=== PATIENT | female | born 1935 | race African-American/Black ===

== ENCOUNTER 2016-11-15 11:17 | Emergency (ER) | payer OTHER ==
[2016-11-15 11:26] VITALS: BP 148/78
[2016-11-15 13:19] LABS: MANUAL DIFF NEEDED? NO
[2016-11-15 13:20] LABS: BASO% 0.4 % (0.0-0.8); EOS# 0.08 X1000 (0.0-0.7); EOS% 1.1 % (0.0-10.0); HEMATOCRIT 34.7 % (37.0-47.0); HEMOGLOBIN 11.6 g/dL (12.0-16.0); IMM GRAN# 0.01 X1000 (0.0-0.04); IMM GRAN% 0.1 % (0.0-0.5); LYMPH# 1.53 X1000 (1.2-3.4); LYMPH% 21.3 % (20.5-51.1); MCH 27.4 PG (27-31); MCHC 33.4 g/dL (33-37); MCV 81.8 FL (81-99); MONO# 0.35 X1000 (0.11-0.59); MONO% 4.9 % (1.7-9.3); MPV 9.5 FL (7.4-10.4); NEUT% 72.2 % (42.2-75.2); PLT 235 X1000 (130-400); RBC 4.24 XMIL (4.2-5.4)
[2016-11-15 13:39] LABS: AGAP 9; ALBUMIN 4.3 g/dL (3.5-5.0); ALKALINE PHOSPHATASE 81 U/L (32-104); BUN 7 mg/dL (8-22); CALCIUM 9.7 mg/dL (8.8-10.2); CHLORIDE 101 mmol/L (98-107); COSMO 272; GOT 26 U/L (10-30); GPT 16 U/L (10-36); POTASSIUM 4.6 mmol/L (3.5-5.1); SODIUM 136 mmol/L (136-145); TCO2 27 mmol/L (25-35); TOTAL PROTEIN 7.8 g/dL (6.3-8.3)
--- NOTE | 2016-11-15 14:43 | PROVIDER DOCUMENTATION ---
HPI-Musculoskeletal Pain/Inj - GENERAL Source: patient <Ashley Albarran - Last Filed: 11/15/16 14:45> - GENERAL Source: patient - HX OF PRESENT ILLNESS-MUSKULOSKELTAL Quality of Pain: reports: aching Severity in ED: mild Onset/Duration: gradual, other (few weeks) Timing: still present, constant Modifying Factors: worse with: movement Any recent injury?: No Locality of Occurance: Home Similar Symptoms Previously?: Yes Recently seen or treated by another doctor?: Yes - LOWER EXTREMITY PAIN/INJURY Lower Extremities Pain: knee: right Context / Method of Injury: reports: unknown Associated Symptoms: reports: denies symptoms <Steven Lemons - Last Filed: 11/15/16 14:51> - GENERAL Chief Complaint: Extremity Pain Stated Complaint: EXTREMITY PAIN Time Seen by Provider: 11/15/16 11:35 - HX OF PRESENT ILLNESS-MUSKULOSKELTAL Nature of Presenting Problem: pt is a 81 y/o F that presents with right knee pain/swelling for a few weeks.Has been seen for it, was told it was arthritis but knee hasn't got any better. Denies injury, denies chest pain,leg edema, or shortness of breath. ( Steven Lemons) Review of Systems - Adult - REVIEW OF SYSTEMS - ADULT Constitutional: denies: chills, fever Eyes: reports: no symptoms reported Ears, Nose, Mouth & Throat: denies: ear pain, sinus problem, throat pain, throat swelling Cardiovascular: denies: chest pain, edema, palpitations Respiratory: denies: dyspnea on exertion, shortness of breath Gastrointestinal: reports: no symptoms reported Genitourinary: reports: no symptoms reported Musculoskeletal: reports: joint pain, joint swelling Integumentary: reports: no symptoms reported Neurological: reports: no symptoms reported Psychiatric: reports: no symptoms reported Endocrine: reports: no symptoms reported Hematologic/Lymphatic: reports: no symptoms reported Allergic/Immunologic: reports: no symptoms reported All Other Systems: Reviewed and Negative <Steven Lemons - Last Filed: 11/15/16 14:51> Past History - Adult - PAST MEDICAL HISTORY-ADULT Review of Records: reports: Old Records Reviewed, Nursing Assessment Review, Medications Reviewed Cardiovascular: reports: HTN, hyperlipidemia Musculoskeletal: reports: arthritis - PRIOR SURGERIES/PROCEDURES Surgical/Procedure History: reports: hysterectomy - IMMUNIZATION STATUS Childhood Immunizations: See Nurse Assessment Flu Vaccine: See Nurse Assessment - FAMILY HISTORY Family History: reviewed, not pertinent - SOCIAL HISTORY Smoking: non-smoker Living Situation: family <Steven Lemons - Last Filed: 11/15/16 14:51> Physical Exam-Injury Related - Physical Exam-Injury Related Initial Vital Signs Reviewed: Yes General Appearance: alert, no apparent distress Eyes: PERRL/EOMI, pink conjunctivae Head, Ears, Nose, Mouth & Throat: normocephalic/atraumatic, moist mucous membranes, normal ENT inspection Neck: non-tender, full range of motion, normal inspection Respiratory: lungs clear, normal breath sounds, no respiratory distress, no accessory muscle use Cardiovascular: regular rate, rhythm, no gallop, no murmur Abdominal Exam: normal bowel sounds, non tender, soft, no organomegaly, no pulsatile mass Back Exam: normal inspection, no vertebral tenderness Extremity: no pedal edema, no calf tenderness, normal capillary refill, pelvis stable, joint effusion (small to right knee) Integumentary: normal color, warm/dry Neurologic: grossly normal, no motor/sensory deficits Psych/Mental Status: normal mood/affect, normal thought content, normal thought process, oriented x 3 <Steven Lemons - Last Filed: 11/15/16 14:51> Progress - ULTRASOUND (By Radiology) 1 US Study: Lower Ext (right) Impression: Normal (no dvt prelim vascular) <Ashley Albarran - Last Filed: 11/15/16 14:45> <Steven Lemons - Last Filed: 11/15/16 14:51> - PLAN OF CARE/RESULTS Progress/Plan/Lab Results: Vital Signs Temp Pulse Resp BP Pulse Ox 11/15/16 11:20 98.4 F 84 18 148/78 97 Laboratory 11/15/16 11/15/16 11/15/16 13:14 13:14 13:14 WBC 7.20 RBC 4.24 Hgb 11.6 L Hct 34.7 L MCV 81.8 MCH 27.4 MCHC 33.4 RDW Std Deviation 12.4 Plt Count 235 MPV 9.5 Immature Gran % (Auto) 0.1 Neut % (Auto) 72.2 Lymph % (Auto) 21.3 Gaines % (Auto) 4.9 Eos % (Auto) 1.1 Baso % (Auto) 0.4 Immature Gran # (Auto) 0.01 Neut # (Auto) 5.20 Lymph # (Auto) 1.53 Gaines # (Auto) 0.35 Eos # (Auto) 0.08 Baso # (Auto) 0.03 D-Dimer 0.77 H Sodium 136 Potassium 4.6 Chloride 101 Carbon Dioxide 27 Anion Gap 9 BUN 7 L Creatinine 0.8 Estimated GFR/1.73 m2 > 60 BUN/Creatinine Ratio 9 Glucose 127 H Calculated Osmolality 272 Calcium 9.7 Total Bilirubin 0.40 AST 26 ALT 16 Alkaline Phosphatase 81 Total Protein 7.8 Albumin 4.3 Globulin 4.0 Albumin/Globulin Ratio 1.0 Orders Category Date Time Status CBC WITH ELECTRONIC DIFF [HEME] Stat Lab 11/15/16 13:14 Completed COMPREHENSIVE METABOLIC PANEL [CHEM] Stat Lab 11/15/16 13:[address]-D[address] [COAG] Stat Lab 11/15/16 13:14 Completed Venous U/S Right Leg [CV] Stat Ther 11/15/16 13:41 Completed (Steven Lemons) Departure - Departure Time of Disposition Order: 14:42 Certified Medical Emergency: Emergent <Ashley Albarran - Last Filed: 11/15/16 14:45> <Steven Lemons - Last Filed: 11/15/16 14:51> - Departure DIAGNOSIS: Right knee pain Qualifiers: Chronicity: acute Qualified Code(s): M25.561 - Pain in right knee Disposition: HOME 01 Condition: Stable Additional Instructions: Follow up with your primary care physician, continue the medications you are prescribed ED Follow Up Instructions: You have been treated by a care provider in the Emergency Department. These instructions are being provided to you so you can have an understanding of how to care for yourself upon discharge. Upon discharge from the Emergency Department, you are responsible for making arrangements for follow-up care by a physician of your choice. Take all prescribed medications as directed. Return to the Emergency Department immediately for any new or worsening symptoms. You may call the Physician Referral phone number at [phone] to obtain a list of Physicians who are taking new patients. Referrals: Ankur Rashid MD [Primary Care Provider] - Instructions: Knee Pain Attestation - Scribe Verification/Attestation Scribe:: Steven Lemons Acting as Scribe for:: Ashley Albarran Scribe documention review:: This chart was documented by a scribe and accurately reflects the service the provider performed and the decisions made by the provider. - Physician/ Mid-level Attestation Patient care was provided by Mid-level provider (CARTON STENCILER/PA):: Yes Mid-level provider:: Ashley Albarran Mid-level documentation review:: The Mid-level provider documentation, treatment plan and medical decision making was reviewed by the physician who agrees with all treatment and medical decision making by the [facility]. <Steven Lemons - Last Filed: 11/15/16 14:51> Physician Attestation
--- NOTE | 2016-11-16 07:19 | Extremity Venous Study ---
PROCEDURE NAME: Venous U/S Right Leg - 11/15/2016 RIGHT LOWER EXTREMITY VENOUS DOPPLER: COMPARISON: None available. FINDINGS: There are no discrete filling defects identified in the right lower extremity deep venous system on grayscale images. There is normal Doppler flow, compressibility, and augmentation involving the common femoral vein, superficial femoral vein, popliteal vein, posterior tibial vein, and peroneal veins. The great saphenous vein appears to be patent. IMPRESSION: No evidence of deep venous thrombosis involving the right lower extremity.
== END 2016-11-15 14:49 | disposition home or self-care (01) ==
LOC: P.ED 11:17
DX: M25.561 Pain in right knee (principal); M25.461 Effusion, right knee; I10 Essential (primary) hypertension; E78.5 Hyperlipidemia, unspecified; M19.90 Unspecified osteoarthritis, unspecified site
CPT/HCPCS: 36415; 80053; 85025; 85379; 93971; 99283